=== PATIENT | male | born 1970 | race Caucasian/White ===

== ENCOUNTER → 2020-04-10 14:27 | Outpatient (BNV) | payer OTHER, SELFPAY | PROVIDERS: PCP Internal Medicine; Visit Provider Internal Medicine | DX: D72.820 Lymphocytosis (symptomatic) (principal) | CPT/HCPCS: 99213 ==

== ENCOUNTER 2020-05-20 09:06 | Outpatient (REF) | payer OTHER, SELFPAY ==
[2020-05-20 11:02] LABS: MANUAL DIFF FLAG NO
[2020-05-20 11:04] LABS: Basophils Absolute Auto 0.1 X10*3/uL (0.0-0.2); Basophils Percent Auto 1.1 % (0-2); Eosinophils Absolute Auto 0.3 X10*3/uL (0.0-0.4); Eosinophils Percent Auto 5.9 % (0-4); Hematocrit 47.2 % (42-52); Hemoglobin 16.1 g/dl (14.0-18.0); Imm Gran Abs Auto 0.01 X10*3/uL (0.00-0.03); Imm Gran Pct Auto 0.2 % (0.0-0.4); Lymphocytes Absolute Auto 3.1 X10*3/uL (1.2-4.9); Lymphocytes Percent Auto 55.3 % (20-40); Mean Corpuscular HGB Conc 34.1 g/dl (31.0-36.0); Mean Corpuscular Hemoglobin 29.5 pg (27.0-33.0); Mean Corpuscular Volume 86.4 fL (80-98); Mean Platelet Volume 9.8 fL (9.4-12.4); Monocytes Absolute Auto 0.5 X10*3/uL (0.1-1.2); Monocytes Percent Auto 8.1 % (2-11); Neutrophils Absolute Auto 1.7 X10*3/uL (2.0-8.3); Neutrophils Percent Auto 29.4 % (45-73); Platelet Count 234 X10*3/uL (160-400); Red Blood Count 5.46 X10*6/uL (4.60-5.80); Red Cell Distribution Width 14.4 % (11.0-16.0); White Blood Count 5.6 X10*3/uL (4.8-10.8)
[2020-05-20 11:54] LABS: Glucose Urine UA NEG (NEG); Leukocyte Esterase Urine NEG (NEG); Nitrite Urine NEG (NEG); Urine Blood NEG (NEG); Urine Ketones NEG (NEG); Urine Protein TRACE MG/DL (NEG-TRACE)
[2020-05-20 12:03] LABS: Appearance Urine CLEAR; Color Urine YELLOW
[2020-05-20 12:04] LABS: Alanine Aminotransferase 45 U/L (0-40); Albumin Level 4.4 g/dL (3.5-5.0); Alkaline Phosphatase 110 U/L (39-117); Anion Gap 13 (12-20); Aspartate Amino Transferase 23 U/L (5-37); Bilirubin Total 1.5 mg/dL (0.0-1.0); Blood Urea Nitrogen 11 mg/dL (9-16); Calcium 8.8 mg/dL (8.4-10.2); Carbon Dioxide 25 mmol/L (22-29); Chloride 106 mmol/L (96-108); Cholesterol 147 mg/dL; Estimated Glomerular Filt Rate > 60; Glucose Fasting 98 mg/dL (60-99); HDL Cholesterol 38 mg/dL; LDL Cholesterol Calculated 81 mg/dl; Potassium 4.8 mmol/l (3.3-5.1); Sodium 139 mmol/L (135-145); Total Protein 7.7 g/dL (6.5-8.0); Triglycerides 140 mg/dL
[2020-05-20 12:09] LABS: Prostate Specific Antigen 0.94 ng/mL (<0.05-4.0); Vitamin D 25-OH Total 45.5 ng/mL (>30)
== END 2020-05-20 09:07 | disposition home or self-care (01) ==
LOC: HO.WFDLDS 09:06
PROVIDERS: Visit Provider Internal Medicine
DX: D72.820 Lymphocytosis (symptomatic) (principal); E80.4 Gilbert syndrome; Z00.00 Encounter for general adult medical examination without abnormal findings
CPT/HCPCS: 36415; 80053; 80061; 81003; 82306; 84153; 85025

== ENCOUNTER → 2020-08-15 07:56 | Outpatient (BNVA) | payer SELFPAY | PROVIDERS: PCP Internal Medicine; Visit Provider Internal Medicine | DX: Z02.79 Encounter for issue of other medical certificate (principal) ==

== ENCOUNTER 2020-08-16 09:40 | Outpatient (REF) | payer OTHER, SELFPAY | END 2020-08-16 09:41 | disposition home or self-care (01) | LOC: HO.WFDLNP 09:40 | PROVIDERS: Visit Provider Family Medicine | DX: R30.0 Dysuria (principal); R35.0 Frequency of micturition | CPT/HCPCS: 87086; 87147 ==

== ENCOUNTER 2020-10-01 06:42 | Day surgery (SDC) | payer OTHER, SELFPAY ==
[2020-09-26 10:49] VITALS: BMI 38.7
[2020-10-01 07:11] VITALS: BP 148/80; PULSE 77; RESP 18; TEMP 36.6; O2SAT 96
--- NOTE | 2020-10-01 07:57 | P.CONAN_ITS ---
HPI - Anesthesia Eval Consult details Narrative: 50 yo male patient here for colonoscopy PMFSH Active Problems Active Problems: All Active Problems (Updated 09/26/20 @ 10:42 by Rayna Mancini) Lymphocytosis (Acute) Dysuria (Acute) Frequency of urination (Acute) Past Medical History Medical History (Updated 10/01/20 @ 08:10 by Any Wahl) Cellulitis Hypertension Increased BMI Large granular lymphocytosis Left leg DVT Family History Family history of problems with anesthesia: No Surgical History Surgical History (Updated 10/01/20 @ 08:06 by Any Wahl) Hx of appendectomy Hx of cholecystectomy History of Problems with Anesthesia: No Social History Social History Smoking Status: Unknown if ever smoked Use of substances other than those prescribed or required for medical reasons: No Advance Directives Information Provided: No Meds Allergies Allergy/AdvReac Type Severity Reaction Status Date / Time No Known Allergies Allergy Verified 08/16/20 08:42 [No Known Allergies*] Home Medications Medication Instructions Recorded Confirmed Last Taken Type valsartan 80 1 tab PO DAILY 08/16/20 10/01/20 10/01/20 History mg-hydrochlorothiazide 12.5 mg tablet aspirin [Aspirin Low-Strength] 81 mg PO DAILY 09/26/20 09/26/20 Unknown History cholecalciferol (vitamin D3) 50 mcg PO DAILY 09/26/20 09/26/20 Unknown History [Vitamin D3] chromium picolinate 500 mcg PO DAILY 09/26/20 09/26/20 Unknown History levocarnitine [L-Carnitine] 500 mg PO BID 09/26/20 09/26/20 Unknown History magnesium oxide 500 mg PO DAILY 09/26/20 09/26/20 Unknown History milk thistle 500 mg PO BID 09/26/20 09/26/20 Unknown History multivitamin 1 tab PO DAILY 09/26/20 09/26/20 Unknown History naproxen 500 mg PO BID PRN 09/26/20 09/26/20 Unknown History omega-3 fatty acids-fish oil 1 cap PO BID 09/26/20 09/26/20 Unknown History [[place] 3 Fish Oil] safflower oil-linoleic acid,co 1 cap PO BID 09/26/20 09/26/20 Unknown History [CLA] vitamin B complex 1 tab PO DAILY 09/26/20 09/26/20 Unknown History vitamin E 400 unit PO BID 09/26/20 09/26/20 Unknown History Exam Exam Date and Time: October 01, 2020 0757 Height,Weight and Vital Signs: Height 6 ft 5 in Weight 148.325 kg Last Vital Signs Temp 97.8 F 10/01/20 07:11 Pulse 77 10/01/20 07:11 Resp 18 10/01/20 07:11 BP 148/80 H 10/01/20 07:11 Pulse Ox 96 10/01/20 07:11 Airway Mallampati Class: III TM Dist: >3cm Neck ROM: Full Loose/Missing/Broken Teeth: Yes (Broken and missing teeth) Heart: RRR Lungs: CTAB Assessment and Plan Assessment Anesthesia Assessment: Anesthesia Plan Discussed and Chart Reviewed Final Anesthetic Review NPO: Yes ASA Class: III Final Preanesthetic Review: No Changes in Pt Med Stat, Meds/Allgs Chart Reviewed, Consent Obtained/Reviewed and Anes Risks/Benef Reviewed Patient Risk: Intermediate Procedure Risk: Low Assessment/Block/Sedation in SS: Assess/Block/Sedation-SS Anesthetic Plan Anesthetic Plan: MAC: Disposition: Standard PACU
[2020-10-01] MEDS: Lactated Ringers 1,000 ML 100 ML IVCONT (08:11)
--- NOTE | 2020-10-01 08:11 | MHC.SHP ---
Pre-Procedural Eval Section B Chief Complaint: screening Details of Present Illness: screening Relevant Family History (Specify if Yes): No Relevant Social History: None Present Medications: see Short Stay Collaborative assessment Medical History: No relevant PMH History of Previous Operations: No relevant previous surgery Allergies: Allergies Allergy/AdvReac Type Severity Reaction Status Date / Time No Known Allergies Allergy Verified 08/16/20 08:42 [No Known Allergies*] Review of Systems Sugical H&P ROS: Negative: Constitution, Cardiovascular, Respiratory, Neurological, Psychiatric, Hem-Onc, Allergic/Immunologic, Gastrointestinal, Genitourinary, Musculoskeletal, Integumentary, Endocrine and Eyes/Ears/Nose/Throat Exam Surgical H&P Exam: Normal: HEENT, Normal: Heart, Normal: Lungs, Normal: Extremities, Normal: Abdomen, Normal: Skin and Normal: Neurological Plan Diagnosis/Plan: Unchanged I have reviewed the history and physical and performed a pertinent physical examination on my patient. No changes have occurred unless specified.
[2020-10-01 08:54] VITALS: BP 114/65; PULSE 77; RESP 14; TEMP 36.1; O2SAT 98
--- NOTE | 2020-10-01 09:03 | PM.OP ---
Brief Operative Note Date of Service: 10/01/20 Pre-op diagnosis: screening Post-op diagnosis: same Surgeon: Ray Friedman Anesthesia: MAC Estimated blood loss (mL): 2 Pathology: other (polyp) Condition: stable Disposition: PACU
[2020-10-01 09:09] VITALS: BP 126/73; PULSE 62; RESP 17; TEMP 36.1; O2SAT 98
--- NOTE | 2020-10-01 09:23 | OP_ITS ---
SURGEON: Ray Friedman MD INDICATIONS: Colon cancer screening. PREOPERATIVE DIAGNOSIS: POSTOPERATIVE DIAGNOSIS: PROCEDURE PERFORMED: Colonoscopy to the terminal ileum with biopsy. ESTIMATED BLOOD LOSS: COMPLICATIONS: ANESTHESIA: ASSISTANTS: SPECIMENS: MEDICATIONS: Monitored anesthesia care. DESCRIPTION OF PROCEDURE: History and physical performed. The risks and benefits of the procedure were explained to the patient. Informed consent was obtained. He was placed in left lateral decubitus position. A digital rectal exam was performed and was found to be normal. The Olympus pediatric video colonoscope was introduced into the rectum and advanced to the cecum without difficulty. The cecum was identified by transillumination, palpation, and identification of ileocecal valve. Examination was performed and the scope was removed. He tolerated the procedure well and was taken to recovery area in stable condition. FINDINGS: The terminal ileum was normal. The visualized colonic mucosa was normal. There was some liquid stool coating the mucosa. This limited the sensitivity examination for detection of small polyps. This was washed and suctioned as best possible. At 70 cm from the anal verge, was a less than 5 mm sessile polyp, which was removed with biopsy forceps. No other polyps were identified. Retroflexed examination showed small internal hemorrhoids. IMPRESSION: Colon polyp. RECOMMENDATION: Follow up the biopsy results. MD ANNETTE Talavera/[facility] / [id number]
== END 2020-10-01 09:30 | disposition home or self-care (01) ==
PROVIDERS: PCP Internal Medicine; Visit Provider Internal Medicine Gastroenterology
PROC: 0DJD8ZZ Inspection of Lower Intestinal Tract, Via Natural or Artificial Opening Endoscopic (ICD-10-PCS; CPT 45378; principal; 2020-10-01 08:10)
DX: Z12.11 Encounter for screening for malignant neoplasm of colon (principal); D12.4 Benign neoplasm of descending colon; K64.8 Other hemorrhoids; I10 Essential (primary) hypertension; D72.820 Lymphocytosis (symptomatic); Z90.49 Acquired absence of other specified parts of digestive tract; Z86.718 Personal history of other venous thrombosis and embolism; Z79.82 Long term (current) use of aspirin; Z79.899 Other long term (current) drug therapy
CPT/HCPCS: 45380; 88305

== ENCOUNTER 2021-04-09 12:35 | Outpatient (REF) | payer OTHER, SELFPAY | END 2021-04-09 12:36 | disposition home or self-care (01) | LOC: HO.LNP 12:35 | PROVIDERS: Visit Provider Hospitalist | DX: R30.0 Dysuria (principal); R35.0 Frequency of micturition | CPT/HCPCS: 87086; 87088; 87186 ==

== ENCOUNTER 2021-04-15 14:19 | Outpatient (REF) | payer OTHER, SELFPAY | END 2021-04-15 14:20 | disposition home or self-care (01) | LOC: HO.LNP 14:19 | PROVIDERS: Visit Provider Hospitalist | DX: N39.0 Urinary tract infection, site not specified (principal) | CPT/HCPCS: 87086; 87088; 87186 ==

== ENCOUNTER 2021-04-17 14:22 | Outpatient (REF) | payer OTHER, SELFPAY | END 2021-04-17 14:23 | disposition home or self-care (01) | LOC: HO.LNP 14:22 | PROVIDERS: Visit Provider Hospitalist | DX: N39.0 Urinary tract infection, site not specified (principal) | CPT/HCPCS: 87086; 87088; 87186 ==

== ENCOUNTER 2021-06-09 10:42 | Outpatient (REF) | payer OTHER, SELFPAY ==
[2021-06-09 10:46] LABS: MANUAL DIFF FLAG NO
[2021-06-09 11:06] LABS: Basophils Percent Auto 0.6 % (0-2); Eosinophils Absolute Auto 0.3 X10*3/uL (0.0-0.4); Eosinophils Percent Auto 4.8 % (0-4); Hematocrit 43.9 % (42.0-52.0); Hemoglobin 15.2 g/dl (14.0-18.0); Lymphocytes Absolute Auto 3.1 X10*3/uL (1.2-4.9); Lymphocytes Percent Auto 57.2 % (20-40); Mean Corpuscular HGB Conc 34.6 g/dl (31.0-36.0); Mean Corpuscular Hemoglobin 29.7 pg (27.0-33.0); Mean Corpuscular Volume 85.9 fL (80.0-98.0); Mean Platelet Volume 10.8 fL (9.4-12.4); Monocytes Absolute Auto 0.5 X10*3/uL (0.1-1.2); Monocytes Percent Auto 8.6 % (2-11); Neutrophils Absolute Auto 1.6 x10*3/uL (2.0-8.3); Neutrophils Percent Auto 28.8 % (45-73); Platelet Count 207 X10*3/uL (160-400); Red Blood Count 5.11 X10*6/uL (4.60-5.80); Red Cell Distribution Width 14.4 % (11.0-16.0); White Blood Count 5.5 X10*3/uL (4.8-10.8)
[2021-06-09 11:09] LABS: Appearance Urine CLEAR; Color Urine YELLOW; Glucose Urine UA NEG (NEG); Leukocyte Esterase Urine NEG (NEG); Nitrite Urine NEG (NEG); Urine Blood NEG (NEG); Urine Ketones NEG (NEG); Urine Protein NEG (NEG-TRACE)
[2021-06-09 11:29] LABS: Alanine Aminotransferase 43 U/L (0-40); Albumin Level 4.3 g/dL (3.5-5.0); Alkaline Phosphatase 133 U/L (39-117); Anion Gap 11 (12-20); Aspartate Amino Transferase 21 U/L (5-37); Bilirubin Total 1.5 mg/dL (0.0-1.0); Blood Urea Nitrogen 25 mg/dL (9-16); Calcium 9.4 mg/dL (8.4-10.2); Carbon Dioxide 24 mmol/L (22-29); Chloride 109 mmol/L (96-108); Cholesterol 138 mg/dL; Estimated Glomerular Filt Rate > 60; Glucose Fasting 108 mg/dL (60-99); HDL Cholesterol 32 mg/dL; LDL Cholesterol Calculated 76 mg/dl; Potassium 3.9 mmol/L (3.3-5.1); Sodium 140 mmol/L (135-145); Total Protein 7.5 g/dL (6.5-8.0); Triglycerides 154 mg/dL
[2021-06-09 11:51] LABS: PSA,Total (Free>4and<10) 1.72 ng/mL (0.00-4.00)
== END 2021-06-09 10:43 | disposition home or self-care (01) ==
LOC: HO.LNP 10:42
PROVIDERS: Visit Provider Internal Medicine
DX: Z00.00 Encounter for general adult medical examination without abnormal findings (principal); Z12.5 Encounter for screening for malignant neoplasm of prostate; D72.820 Lymphocytosis (symptomatic); I10 Essential (primary) hypertension
CPT/HCPCS: 80053; 80061; 81003; 84153; 85025

== ENCOUNTER → 2021-08-14 08:26 | Outpatient (BNVA) | payer SELFPAY | PROVIDERS: PCP Internal Medicine; Visit Provider Internal Medicine | DX: Z02.79 Encounter for issue of other medical certificate (principal) ==

== ENCOUNTER 2021-08-14 11:14 | Outpatient (REF) | payer OTHER, SELFPAY ==
[2021-08-14 12:43] LABS: Blood Urea Nitrogen 8 mg/dL (9-16); Estimated Glomerular Filt Rate > 60
== END 2021-08-14 11:15 | disposition home or self-care (01) ==
LOC: HO.LNP 11:14
PROVIDERS: Visit Provider Internal Medicine
DX: R79.9 Abnormal finding of blood chemistry, unspecified (principal)
CPT/HCPCS: 82565; 84520

== ENCOUNTER 2022-06-12 10:40 | Outpatient (REF) | payer OTHER, SELFPAY ==
[2022-06-12 10:54] LABS: Basophils Absolute Auto 0.1 X10*3/uL (0.0-0.2); Basophils Percent Auto 1.1 % (0-2); Eosinophils Absolute Auto 0.3 X10*3/uL (0.0-0.4); Eosinophils Percent Auto 4.6 % (0-4); Hematocrit 46.3 % (42.0-52.0); Hemoglobin 16.4 g/dl (14.0-18.0); Imm Gran Abs Auto 0.01 X10*3/uL (0.00-0.03); Imm Gran Pct Auto 0.2 % (0.0-0.4); Lymphocytes Absolute Auto 3.4 X10*3/uL (1.2-4.9); Lymphocytes Percent Auto 61.8 % (20-40); Mean Corpuscular HGB Conc 35.4 g/dl (31.0-36.0); Mean Corpuscular Volume 84.8 fL (80.0-98.0); Mean Platelet Volume 10.3 fL (9.4-12.4); Monocytes Absolute Auto 0.5 X10*3/uL (0.1-1.2); Neutrophils Absolute Auto 1.3 x10*3/uL (2.0-8.3); Neutrophils Percent Auto 23.3 % (45-73); Platelet Count 250 X10*3/uL (160-400); Red Blood Count 5.46 X10*6/uL (4.60-5.80); Red Cell Distribution Width 13.6 % (11.0-16.0); SCAN SMEAR FLAG 1; White Blood Count 5.4 X10*3/uL (4.8-10.8)
[2022-06-12 10:55] LABS: Appearance Urine Clear; Color Urine Yellow; Glucose Urine UA Negative (Negative); Leukocyte Esterase Urine Trace (Negative); Nitrite Urine Negative (Negative); PH 5.5 (5.0-9.0); UMIC TRIGGER UACC YES; Urine Blood Negative (Negative); Urine Ketones Negative (Negative); Urine Protein Negative (Neg-Trace)
[2022-06-12 11:01] LABS: Bacteria Urine None Seen (None Seen); Hyaline Casts Urine 0-2 /LPF (0-2); RBC Urine 0-2 /HPF (0-2); WBC Urine 0-5 /HPF (0-5)
[2022-06-12 11:11] LABS: MANUAL DIFF FLAG SCAN; SLIDE REVIEW VERIFIED
[2022-06-12 11:16] LABS: Alanine Aminotransferase 58 U/L (0-40); Albumin Level 4.5 g/dL (3.5-5.0); Alkaline Phosphatase 95 U/L (39-117); Anion Gap 13 (12-20); Aspartate Amino Transferase 29 U/L (5-37); Bilirubin Total 2.3 mg/dL (0.0-1.0); Blood Urea Nitrogen 18 mg/dL (9-16); Calcium 9.9 mg/dL (8.4-10.2); Carbon Dioxide 26 mmol/L (22-29); Chloride 103 mmol/L (96-108); Cholesterol 157 mg/dL; Estimated Glomerular Filt Rate > 60; Glucose Fasting 106 mg/dL (60-99); HDL Cholesterol 32 mg/dL; LDL Cholesterol Calculated 103 mg/dl; Sodium 138 mmol/L (135-145); Total Protein 7.7 g/dL (6.5-8.0); Triglycerides 110 mg/dL
== END 2022-06-12 10:41 | disposition home or self-care (01) ==
LOC: HO.LNP 10:40
PROVIDERS: Visit Provider Internal Medicine
DX: Z00.00 Encounter for general adult medical examination without abnormal findings (principal); D72.820 Lymphocytosis (symptomatic); I10 Essential (primary) hypertension; Z12.5 Encounter for screening for malignant neoplasm of prostate
CPT/HCPCS: 80053; 80061; 81001; 84153; 85025

== ENCOUNTER 2022-09-16 12:45 | Emergency (ER) | payer OTHER, SELFPAY ==
--- NOTE | ~2022-09-16 | US_ITS ---
EXAMINATION: US VENOUS ULTRASOUND WITH DOPPLER LOWER EXTREMITY, LEFT CLINICAL INFORMATION: Swelling and pain. Rule out Achilles tendon rupture and DVT COMPARISON: None available. TECHNIQUE: Ultrasound of the deep veins is performed from the hip to the calf with compression sonography and color and pulse Doppler assessment. Spectral analysis with color-flow imaging is performed. FINDINGS: There is normal venous compression and respiratory variation and augmented flow. The visualized common femoral vein, superficial femoral vein, profunda femoral vein, popliteal vein, and the posterior tibial veins shows no evidence of deep venous thrombosis. Peroneal veins not well visualized. There is no significant popliteal fossa cyst. The Achilles tendon appears intact. US/US venous duplex LE LT IMPRESSION: No DVT demonstrated in the left lower extremity. Peroneal veins not visualized. Intact Achilles tendon.
[2022-09-16 13:27] VITALS: BP 149/88; PULSE 80; RESP 16; TEMP 36.9; O2SAT 96; BMI 29.2
--- NOTE | 2022-09-16 13:28 | ED.LOWEXIN ---
HPI - Extremity Injury (Lower) General Chief Complaint: Extremity Injury, Lower <Liudmila Daniels NP - Last Filed: 09/17/22 11:09> Stated Complaint: L Leg Pain No Injury <Liudmila Daniels NP - Last Filed: 09/17/22 11:09> Time Seen by Provider: 09/16/22 14:31 <Liudmila Daniels NP - Last Filed: 09/17/22 11:09> Source: patient <YANETH Leiva - Last Filed: 09/16/22 16:24> Mode of arrival: ambulatory <YANETH Leiva - Last Filed: 09/16/22 16:24> History of Present Illness HPI Narrative: 52-year-old male with a past medical history hypertension, presenting to the ED complaining of left lower extremity/calf pain s/p feeling tear while walking yesterday. Reports subsequently was walking at work today and heard a popping noise. Reports increasing difficulty ambulating secondary to pain/tightness. Denies numbness, tingling, weakness, SOB, direct injury/trauma <YANETH Leiva - Last Filed: 09/16/22 16:24> MD complaint: leg injury <YANETH Leiva Last Filed: 09/16/22 16:24> Related Data Home Medications: Home Medications Medication Instructions Recorded Confirmed valsartan 80 1 tab PO DAILY 08/16/20 06/22/22 mg-hydrochlorothiazide 12.5 mg tablet aspirin 81 mg tablet,delayed 81 mg PO DAILY 09/26/20 06/22/22 release cholecalciferol (vitamin D3) 50 50 mcg PO DAILY 09/26/20 06/22/22 mcg (2,000 unit) tablet (Vitamin D3) multivitamin 1 tab PO DAILY 09/26/20 06/22/22 omega-3 fatty acids-fish oil 684 1 cap PO BID 09/26/20 06/22/22 mg-1,200 mg capsule,delayed release vitamin E 1 tab PO DAILY 12/16/21 06/22/22 <Liudmila Daniels NP - Last Filed: 09/17/22 11:09> Allergies/Adverse Reactions: Allergies Allergy/AdvReac Type Severity Reaction Status Date / Time No Known Allergies Allergy Verified 06/22/22 10:06 [No Known Allergies*] <Liudmila Daniels NP - Last Filed: 09/17/22 11:09> Review of Systems Review of Systems: Constitutional: No Fever, No Chills ENT/Mouth: No Ear Pain, No Nasal Congestion, No sore throat, No Rhinorrhea, No Swallowing Difficulty Cardiovascular: No Chest Pain, No SOB Respiratory: No Cough, No Sputum Gastrointestinal: No Nausea, No Vomiting, No Diarrhea, No Constipation, No Abdominal pain Genitourinary: No Dysuria, No Urinary Frequency Musculoskeletal: + joint pain, No Myalgias, + Joint Swelling Skin: No Skin Lesions, No rash Neuro: No Weakness, No Numbness, No Paresthesias <YANETH Leiva - Last Filed: 09/16/22 16:24> Yes all other systems are reviewed and are negative <YANETH Leiva - Last Filed: 09/16/22 16:24> Constitutional: Constitutional: Reports as per HPI <YANETH Lieva - Last Filed: 09/16/22 16:24> [facility] Past Medical History Attestation statement: The following information was validated with the patient. <YANETH Leiva - Last Filed: 09/16/22 16:24> Medical History: Medical History Cellulitis Hypertension Increased BMI Large granular lymphocytosis Left leg DVT <Liudmila Daniels NP - Last Filed: 09/17/22 11:09> Surgical History: Surgical History Hx of appendectomy Hx of cholecystectomy <Liudmila Daniels NP - Last Filed: 09/17/22 11:09> Family History Family History: Family History Paternal Grandfather Heart disease Paternal Grandmother Colon cancer <Liudmila Daniels NP - Last Filed: 09/17/22 11:09> Social History Social History: Social History Household Members: Friend(s) and None Housing: Apartment Are you a primary associate director career services to a significant other at home: No Do you presently have visiting nurse or other home services: No Alcohol intake: former Patient Tobacco Use Status: Former Tobacco user Quit Date: 1990 Tobacco use type: Cigarette Advance Directives: No Advance Directives Information Provided: Yes service: No Current occupational status: employed <Liudmila Daniels NP - Last Filed: 09/17/22 11:09> Physical Exam Vital Signs: Vital Signs: Last Vital Signs Temp 98.5 F 09/16/22 13:27 Pulse 80 09/16/22 13:27 Resp 16 09/16/22 13:27 BP 149/88 H 09/16/22 13:27 Pulse Ox 96 09/16/22 13:27 O2 Del Method Room Air 09/16/22 13:27 BMI result Body Mass Index 29.2 <Liudmila Daniels NP - Last Filed: 09/17/22 11:09> Vital Signs: Last Vital Signs Temp 98.5 F 09/16/22 13:27 Pulse 80 09/16/22 13:27 Resp 16 09/16/22 13:27 BP 149/88 H 09/16/22 13:27 Pulse Ox 96 09/16/22 13:27 O2 Del Method Room Air 09/16/22 13:27 BMI result Body Mass Index 29.2 <YANETH Leiva - Last Filed: 09/16/22 16:24> Const: General: cooperative, healthy appearing and no acute distress <YANETH Leiva - Last Filed: 09/16/22 16:24> Orientation/consciousness: patient oriented x3 <YANETH Leiva - Last Filed: 09/16/22 16:24> Limitations: no limitations <YANETH Leiva Last Filed: 09/16/22 16:24> HEENT: Head: Yes normal to inspection and Yes atraumatic <YANETH Leiva Last Filed: 09/16/22 16:24> Ears: hearing grossly normal bilaterally <YANETH Leiva Last Filed: 09/16/22 16:24> General nose exam: Normal external nose present <YANETH Leiva Last Filed: 09/16/22 16:24> Face and sinus: Yes normal facial exam <YANETH Leiva - Last Filed: 09/16/22 16:24> Eyes: General: appearance normal, both eyes and all related structures <YANETH Leiva - Last Filed: 09/16/22 16:24> EOM: EOMs intact bilaterally <YANETH Leiva - Last Filed: 09/16/22 16:24> Neck: Neck: Yes normal visual inspection and Yes no meningeal signs <YANETH Leiva - Last Filed: 09/16/22 16:24> Resp: Effort & Inspection: normal respiratory effort and no respiratory distress <YANETH Leiva - Last Filed: 09/16/22 16:24> Cardio: Rate: regular rate <YANETH Leiva - Last Filed: 09/16/22 16:24> Heart sounds: S1 normal heart sound present and S2 normal heart sound present <YANETH Leiva - Last Filed: 09/16/22 16:24> Peripheral pulses: Peripheral pulses 2+ throughout <Magaly Ferro PA - Last Filed: 09/16/22 16:24> Skin: Rashes: no rashes <YANETH Leiva - Last Filed: 09/16/22 16:24> Wounds: no wounds <YANETH Leiva - Last Filed: 09/16/22 16:24> Neuro: General: patient oriented x3, tone normal and no meningeal signs <YANETH Leiva - Last Filed: 09/16/22 16:24> Gait exam (Neuro): Other gait observations present (limping, guarding gait) <YANETH Leiva - Last Filed: 09/16/22 16:24> Extrem: Other: Upper extremity with mild swelling, no pitting edema. Left calf with tenderness, feels tight, compartment soft. No erythema/warmth or ecchymosis. Neurovascularly intact distally. Pain with dorsiflexion. Negative Burnett test <YANETH Leiva - Last Filed: 09/16/22 16:24> Course Course Course Narrative: This is rapid medical exam. Deferred additional HPI, ROS, PE to primary provider. 52-year-old male with a history of hypertension presents to the ER with complaints of left posterior calf pain. Patient reports he felt some discomfort in the posterior calf yesterday but today while walking felt a popping sensation. Will obtain ultrasound to eval for DVT and assess Achilles tendon Vitals stable <Liudmila Daniels NP - Last Filed: 09/17/22 11:09> This is rapid medical exam. Deferred additional HPI, ROS, PE to primary provider. 52-year-old male with a history of hypertension presents to the ER with complaints of left posterior calf pain. Patient reports he felt some discomfort in the posterior calf yesterday but today while walking felt a popping sensation. Will obtain ultrasound to eval for DVT and assess Achilles tendon Vitals stable US venous duplex LE LT IMPRESSION: No DVT demonstrated in the left lower extremity. Peroneal veins not visualized. Intact Achilles tendon. >> will apply walking boot and recommended orthopedic follow-up Results discussed with patient including worrisome signs and symptoms and strict return precautions, and when to return to the emergency department. They verbalized understanding and feel safe for discharge at this time. <YANETH Leiva - Last Filed: 09/16/22 16:24> Medical Decision Making Medical Decision Making MDM Narrative: 52-year-old male with a past medical history hypertension, presenting to the ED complaining of left lower extremity/calf pain s/p feeling tear while walking yesterday. On exam vital signs stable, NAD, nontoxic appearing, physical exam as noted above. Concern for DVT vs Achilles tendon rupture/tear vs gastrocnemius muscle tear Plan: Ultrasound Please refer to course for remaining clinical decision making, interpretation of labs/imaging results, and discussions with consultants and/or family members. <YANETH Leiva - Last Filed: 09/16/22 16:24> Differential Diagnosis Differential Diagnoses: The differential diagnosis associated with the presentation includes <YANETH Leiva Last Filed: 09/16/22 16:24> As above <YANETH Leiva - Last Filed: 09/16/22 16:24> Admission/Observation Consideration of admission/observation: Escalation of care including admission/observation considered <YANETH Leiva Last Filed: 09/16/22 16:24> Lab Data [facility] Lab Attestation statement: I reviewed the patient's lab results. <YANETH Leiva - Last Filed: 09/16/22 16:24> Radiology Impression Discussion of test interpretation with radiology: I have reviewed the radiologist's reading. <YANETH Leiva - Last Filed: 09/16/22 16:24> External Record Review External record reviewed: Inpatient record, Office record, Outpatient record, Prior outpatient labs, Prior outpatient radiology, Primary care record and Outside ED record <YANETH Leiva - Last Filed: 09/16/22 16:24> Discharge Plan Discharge Clinical Impression: Strain of Achilles tendon <Liudmila Daniels NP - Last Filed: 09/17/22 11:09> Patient Disposition: Home, Self-Care <Liudmila Daniels NP - Last Filed: 09/17/22 11:09> Instructions: Achilles Tendinitis (ED) <Liudmila Daniels NP - Last Filed: 09/17/22 11:09> Additional Instructions: Your ultrasound does not show a DVT. It also shows your Achilles is intact It is possible you have a small Achilles or gastrocnemius muscle tear or strain Please were walking shoe and limit ambulating/weight-bearing status for the next week Please follow-up with orthopedics Ice and elevate Take Tylenol & Motrin for pain <Liudmila Daniels NP - Last Filed: 09/17/22 11:09> Prescriptions: No Action multivitamin Tablet 1 tab PO DAILY aspirin 81 mg Tablet,Delayed Release (Dr/Ec) 81 mg PO DAILY omega-3 fatty acids-fish oil 684-1,200 mg Capsule,Delayed Release(Dr/Ec) 1 cap PO BID cholecalciferol (vitamin D3) [Vitamin D3] 50 mcg (2,000 unit) Tablet 50 mcg PO DAILY vitamin E 1 tab PO DAILY valsartan-hydrochlorothiazide 80-12.5 mg tablet 1 tab PO DAILY <Liudmila Daniels NP - Last Filed: 09/17/22 11:09> Referrals: [facility] [Provider Group] - 5 days Ranulfo Malik MD [Primary Care Provider] - <Liudmila Daniels NP - Last Filed: 09/17/22 11:09> Stand Alone Forms: Work/School Release <Liudmila Daniels NP - Last Filed: 09/17/22 11:09> Interventions: ED Discharge Assessment Last Done: 09/16/22 16:47 <Liudmila Daniels NP - Last Filed: 09/17/22 11:09> Discharge Date/Time: 09/16/22 16:28 <Liudmila Daniels NP - Last Filed: 09/17/22 11:09>
== END 2022-09-16 16:28 | disposition home or self-care (01) ==
PROVIDERS: Emergency Provider Emergency Medicine; PCP Internal Medicine
DX: M79.662 Pain in left lower leg (principal); I10 Essential (primary) hypertension; S86.012A Strain of left Achilles tendon, initial encounter; X58.XXXA Exposure to other specified factors, initial encounter; Y93.89 Activity, other specified; Y92.9 Unspecified place or not applicable; Y99.9 Unspecified external cause status
CPT/HCPCS: 93971; 99284

== ENCOUNTER 2022-10-08 | Outpatient (REF) | payer OTHER, SELFPAY ==
[2022-10-08 16:35] LABS: Appearance Urine Cloudy; Color Urine Yellow; Glucose Urine UA Negative (Negative); Leukocyte Esterase Urine Large (3+) (Negative); Nitrite Urine Positive (Negative); PH 5.5 (5.0-9.0); Specific Gravity - Urine 1.015 (1.005-1.025); UMIC TRIGGER UA YES; Urine Blood Trace (Negative); Urine Ketones Negative (Negative); Urine Protein Negative (Neg-Trace)
[2022-10-08 16:38] LABS: Bacteria Urine 4+ (None Seen); Hyaline Casts Urine 0-2 /LPF (0-2); RBC Urine 0-2 /HPF (0-2); WBC Urine >50 /HPF (0-5)
== END 2022-10-08 00:01 | disposition home or self-care (01) ==
LOC: HO.LNP
PROVIDERS: Visit Provider Internal Medicine
DX: N30.90 Cystitis, unspecified without hematuria (principal)
CPT/HCPCS: 81001; 87086; 87088; 87186